=== PATIENT | female | born 1995 | race Caucasian/White ===

== ENCOUNTER 2017-03-18 19:16 | Emergency (ER) | payer MEDICAID ==
[~2017-03-18] VITALS: Ht 170.2 cm; Wt 56.2 kg
[~2017-03-18 19:16] MED LIST: ALBU18HF; BUDE10.2; IBUP-1222 PO; PNV91TAB3 PO
[2017-03-18 19:18] VITALS: BP 117/62
== END 2017-03-18 20:47 | disposition home or self-care (01) ==
LOC: ED 20:00
DX: S83.91XA Sprain of unspecified site of right knee, initial encounter (principal); X50.1XXA Overexertion from prolonged static or awkward postures, initial encounter; Y93.89 Activity, other specified; Y99.8 Other external cause status; Y92.69 Other specified industrial and construction area as the place of occurrence of the external cause
CPT/HCPCS: 29505

== ENCOUNTER 2017-05-26 19:21 | Emergency (ER) | payer MEDICAID ==
[~2017-05-26] VITALS: Ht 165.1 cm; Wt 58.2 kg
[2017-05-26] MEDS ORDERED: KETOROLAC 30 MG/1 ML IM ONE (20:30)
[2017-05-26] MEDS ORDERED: ONDANSETRON ODT 4 MG PO ONE (20:30)
[2017-05-26] MEDS ORDERED: HYDROcodone/APAP 5/325 TABLET PO ONE (20:30)
[2017-05-26] MEDS ORDERED: KETOROLAC 30 MG/1 ML ONE (20:32)
[2017-05-26] MEDS ORDERED: HYDROcodone/APAP 5/325 TABLET ONE (20:32)
[2017-05-26] MEDS ORDERED: ONDANSETRON ODT 4 MG ONE (20:33)
[2017-05-26 21:14] VITALS: BP 117/70
== END 2017-05-26 21:17 | disposition home or self-care (01) ==
LOC: ED 20:44
DX: G44.229 Chronic tension-type headache, not intractable (principal); J45.909 Unspecified asthma, uncomplicated
CPT/HCPCS: 96372; 99283; J1885; Q0162